=== PATIENT | female | born 1950 | race Caucasian/White ===

== ENCOUNTER → 2018-10-09 | Day surgery (SDC) | payer OTHER, BC ==
--- NOTE | 2018-10-10 17:32 | PATH ---
Surgical Pathology Report Patient Name: KENNA WALKER [facility]. Rec. #: [id number] /Age/Gender: 1950 (Age: 68) / F Account: [id number] Location: [facility] Taken: 10/09/2018 Received: 10/09/2018 Reported: 10/10/2018 Physicians: Calixto Friend M.D. Specimen(s) Received BREAST CORE BIOPSY LEFT 8-9:00 Clinical History Nonpalpable lesion Ultrasound findings: Suspicious Final Diagnosis LEFT BREAST, 8 - 9:00, 0.4 CM MASS WITH CALCIFICATION, ULTRASOUND GUIDED CORE BIOPSIES: INVASIVE DUCTAL CARCINOMA, MODERATELY DIFFERENTIATED, MEASURING 0.4 CM IN LENGTH MEASURED ON THIS SLIDE. DUCTAL CARCINOMA IN SITU (DCIS) PRESENT, MICROPAPILLARY PATTERN, WITH ASSOCIATED CALCIFICATIONS. Results of Estrogen Receptor (ER) and Progesterone Receptor (AR) studies performed on block "1" at [facility] are as follows: ER (clone [id number] mouse monoclonal antibody by [employer]): 100% nuclear staining with strong intensity (Positive). AR (clone16 mouse monoclonal antibody by [employer]): ~3% nuclear staining with weak and moderate intensity (Low positive). Positive and negative controls (internal if applicable) show appropriate results. Formalin fixation and cold ischemic times are within current ASCO/CAP recommendations for ER, AR and Her2 testing. Comment: Immunohistochemical stains performed and interpreted at [facility] show the following results: smooth muscle myosin heavy chain and p63 show loss of the myoepithelial cell layer in the areas of invasive carcinoma. E-Cadherin shows membranous expression in the tumor cells, supporting a ductal phenotype. Reports for Her 2 and Ki-67 to follow. Intradepartmental case reviewed with concordance on diagnosis. Electronically Signed Zakia Crabtree M.D. Addendum Reported: 10/12/2018 Addendum Diagnosis Biomarker Studies Results of Her2 (IHC) & Ki-67 studies performed on this specimen at [place], [place] ([id number]) interpreted at [facility] are as follows: Her2 IHC (EP3 from [employer], formerly known as [id number], using Tong Polymer Refine detection kit): Negative (1+) Ki-67: 15~20% (intermediate proliferative index) Zakia Crabtree M.D. Gross Description Received in formalin labeled "left breast 8-9:00," are 6 hopson-yellow, cylindrical portions of fibroadipose tissue ranging from 0.1-0.9 cm in length and averaging 0.1 cm in diameter. The specimens are submitted in toto in one cassette. Time to formalin fixation: Less than one minute Total formalin fixation time: Approximately 7 hours. 10/09/2018 [facility]10/09/2018
== END | disposition home or self-care (01) ==
LOC: JRADUS-SUR 10:34
PROVIDERS: ATTEND Obstetrics & Gynecology
PROC: 0HBU3ZX Excision of Left Breast, Percutaneous Approach, Diagnostic (ICD-10-PCS; principal; 2018-10-09)
DX: C50.912 Malignant neoplasm of unspecified site of left female breast (principal)
CPT/HCPCS: 19083; 77065-TC; 87899; 88305-TC; 88341-TC; 88342-TC; A4648

== ENCOUNTER 2021-07-09 06:17 | Day surgery (SDC) | payer OTHER, BC ==
[2021-07-09 06:48] VITALS: BMI 22.6
[2021-07-09] MEDS ORDERED: BUPIVACAINE HCL/PF 0.25% (2.5MG/ML) 10 ML VIAL ONE (07:19)
[2021-07-09] MEDS ORDERED: LIDOCAINE HCL 1%, 10 MG/ML (20ML VIAL) ONE (07:20)
[2021-07-09] MEDS ORDERED: PROPOFOL 20 ML ONE (07:42)
[2021-07-09] MEDS ORDERED: SUCCINYLCHOLINE CHLORIDE 200 MG/10 ML SYRINGE ONE (07:42)
[2021-07-09] MEDS ORDERED: MIDAZOLAM HCL 2 MG/2 ML SINGLE DOSE VIAL ONE (07:42)
[2021-07-09] MEDS ORDERED: ceFAZolin SODIUM 1 GM VIAL ONE (08:28)
[2021-07-09] MEDS ORDERED: ONDANSETRON 4 MG/2 ML VIAL ONE (08:28)
[2021-07-09] MEDS ORDERED: DEXAMETHASONE SOD PHOSPHATE 4 MG/1 ML VIAL ONE (08:28)
[2021-07-09 09:23] VITALS: TEMP 97.6
[2021-07-09 09:52] VITALS: BP 113/56; PULSE 78
== END 2021-07-09 10:05 | disposition home or self-care (01) ==
LOC: FASU 06:17
PROVIDERS: ATTEND Orthopaedic Surgery
PROC: 0LN80ZZ Release Left Hand Tendon, Open Approach (ICD-10-PCS; principal; 2021-07-09 08:37)
DX: M65.332 Trigger finger, left middle finger (principal)
CPT/HCPCS: 88304-TC

== ENCOUNTER 2021-08-07 04:15 | Day surgery (SDC) | payer OTHER, BC ==
[2021-08-06 11:33] VITALS: BMI 22.9
[~2021-08-07 04:15] MED LIST: BUPIVACAINE HCL/PF 0.75% 10 ML VIAL NR ONE
[2021-08-07 07:20] VITALS: TEMP 97.1
[2021-08-07] MEDS ORDERED: BUPIVACAINE HCL/PF 0.75% 10 ML VIAL ONE (07:24)
[2021-08-07] MEDS ORDERED: LIDOCAINE HCL/PF 1% SDV 5ML VIAL ONE (07:24)
[2021-08-07] MEDS ORDERED: LIDOCAINE HCL 1% PRESERVATIVE FREE - 30ML VIAL IJ ONE (09:53)
[2021-08-07] MEDS ORDERED: BUPIVACAINE HCL/PF 0.75% 10 ML VIAL NR ONE (09:59)
[2021-08-07 10:23] VITALS: BP 91/71; PULSE 66
== END 2021-08-07 10:50 | disposition home or self-care (01) ==
LOC: JASU-SURG 04:15
PROVIDERS: ATTEND Pain Medicine Pain Medicine
PROC: 3E0T33Z Introduction of Anti-inflammatory into Peripheral Nerves and Plexi, Percutaneous Approach (ICD-10-PCS; 2021-08-07)
PROC: 3E0T3BZ Introduction of Anesthetic Agent into Peripheral Nerves and Plexi, Percutaneous Approach (ICD-10-PCS; principal; 2021-08-07 09:15)
DX: M47.816 Spondylosis without myelopathy or radiculopathy, lumbar region (principal)
CPT/HCPCS: 76000-TC-FY